=== PATIENT | female | born 1990 | race Caucasian/White ===

== ENCOUNTER 2017-02-15 18:08 | Emergency (ER) | payer OTHER ==
[~2017-02-15] VITALS: Ht 157.5 cm; Wt 63.5 kg
--- NOTE | 2017-02-15 19:04 | ED HEADACHE COMPLAINT ---
History of Present Illness General Chief Complaint: General Adult Stated Complaint: WALTERS, DIZZY, FEELS LIKE HEART IS RACING Source: patient, old records Exam Limitations: no limitations Vital Signs & Intake/Output Vital Signs & Intake/Output Vital Signs Date Time Temp Pulse Resp B/P B/P Pulse O2 O2 Flow FiO2 Mean Ox Delivery Rate 02/16 2056 97.9 78 18 108/69 98 Room Air 02/15 2055 100 Room Air 02/15 1827 98.9 106 18 125/85 99 Room Air ED Intake and Output 02/16 0000 02/15 1200 Intake Total Output Total Balance Patient 140 lb Weight Weight Reported by Patient Measurement Method Allergies Coded Allergies: NO KNOWN ALLERGIES (10/29/13) Reconcile Medications Butalb/Acetaminophen/Caffeine (Fioricet 50-300-40 MG Capsule) 50 MG-300 MG-40 MG CAPSULE 1 TAB PO Q6HR PRN HEADACHE Triage Note: PT TO TRIAGE WITH C/O MIGRAINE 6/ AND PALPITATIONS xFEW DAYS. PT SMOKES MARIJUANA. EKG DONE IN TRIAGE -ST 100'S. PT DENIES CHEST PAIN,SOB. Triage Nurses Notes Reviewed? yes Onset: Gradual Duration: week(s): (2.5), intermittent, waxing and waning Timing: recent history Quality/Severity: mild, moderate Severity Numbers: 5 Head Injury Location: global No Modifying Factors: none Associated Symptoms: PALPITATIONS : No Patient currently breastfeeds: No HPI: 26-year-old female with no medical history presents to ER for evaluation cleared 2-1/2 week history of a generalized intermittent waxing and waning headache after she states she sustained a concussion. Pain is 6 out of 10 and she has not taken anything for her symptoms. She is also reports intermittent palpitations since the injury occurred. There was no loss of consciousness she denies fever chills she has a history of palpitations in the past. No chest pain shortness of breath. Pain nausea vomiting. She's not sought care for the symptoms until today. She smokes marijuana daily and had a glass of wine with her mom prior to coming into the ER today (JACQUELINE BAIRD,YANI) Past History Travel History Traveled to [place] past 21 day No Medical History Any Pertinent Medical History? see below for history Cardiovascular: PALPITATIONS Tetanus Vaccine: 10/29/13 Surgical History Surgical History: non-contributory Psychosocial History What is your primary language Urdu Tobacco Use: Current Daily Use Daily Tobacco Use Amount/Type: => 5 Cigarettes daily ETOH Use: occasional use Illicit Drug Use: marijuana Family History Hx Contributory? No (YANI GIBBONS) Review of Systems Review of Systems Constitutional: Reports: see HPI. All Other Systems: Reviewed and Negative Comments Review of systems: See HPI, All other systems negative. Constitutional, no chills no fever, no malaise HEENT: No visual changes no sore throat no congestion, no ear pain Cardiovascular: No chest pain , no palpitation , no orthopnea Skin: , no change in skin Respiratory: No dyspnea no cough no sputum GI: No nausea no vomiting, no diarrhea, : No dysuria No hematuria, Muscle skeletal: No joint pain, no joint swelling, no back pain, no neck pain, Neurologic: No numbness no confusion, headache Psych: No stress no depression,. Heme/endocrine: No bruising no bleeding Immunology: No lymphadenopathy (YANI GIBBONS) Physical Exam Physical Exam General Appearance: well developed/nourished, alert, awake Cranial Nerves: normal hearing, normal speech, PERRL Comments: Well-developed well-nourished person in no acute distress HEENT: Normal EENT exam; PERRL, EOMI, no nystagmus. HEAD is atraumatic. moist mucous membranes. Neck: Supple, no lymphadenopathy, normal range of motion without pain or tenderness Back: Nontender, no CVA tenderness. Full range of motion Cardiovascular: Regular rate and rhythms no murmurs rubs Respiratory: Chest nontender.There were no bony deformities, no asymmetry. No respiratory distress. Patient speaking in full complete sentences. Breath sounds clear to auscultation bilaterally: NO W/R/R Abdomen: Soft, nontender nondistended, no appreciable organomegaly. Normal bowel sounds. No rebound/guarding, Extremity: No edema, full range of motion of extremities Neuro: Alert oriented x3, motor sensory normal. There were no obvious focal neurologic abnormalities. Skin: No appreciable rash on exposed skin, skin is warm and dry. Psych: Mood and affect is normal, memory and judgment is normal. Core Measures Severe Sepsis Present: No Septic Shock Present: No (YANI GIBBONS) Progress Differential Diagnosis: cluster WALTERS, encephalitis, IC mass/tumor, intracranial Hem., meningitis, migraine WALTERS, musculoskeletal pain, sinusitis, subarach. Hem., tension WALTERS, VIRAL SYNDROME, ELECTROLYTE ABNORAMLITY, THYROID ABNORMALITY Plan of Care: Orders Procedure Date/time Status THYROID STIMULATING HORMONE 02/15 1905 Complete COMPREHENSIVE METABOLIC PANEL 02/15 1905 Complete CBC WITHOUT DIFFERENTIAL 02/15 1905 Complete EKG 02/15 1810 Active Laboratory Tests 02/15/172002: Anion Gap 10, Estimated GFR > 60, BUN/Creatinine Ratio 11.4, Glucose 82, Calcium 9.6, Total Bilirubin 0.3, AST 19, ALT 34, Alkaline Phosphatase 57, Total Protein 6.8, Albumin 4.1, Globulin 2.7, Albumin/Globulin Ratio 1.5, TSH 0.685, CBC w Diff NO MAN DIFF REQ, RBC 4.19 L, MCV 85.4, MCH 28.1, RDW 15.5 H, MPV 7.4, Gran % 59.9, Lymphocytes % 30.7, Monocytes % 8.0, Eosinophils % 0.9, Basophils % 0.5, Absolute Granulocytes 5.8, Absolute Lymphocytes 3.0, Absolute Monocytes 0.8 H, Absolute Eosinophils 0.1, Absolute Basophils 0, PUBS MCHC 32.9 L LABS ORDERED, PT CURRENLTY STACH AT 100, DENIES CP, DYSPNEA. MEDICATED WITH MOTRIN 800MG I discussed with the patient at length all of their results. I had an extensive conversation regarding need for close follow up with their primary care physician this week as well as return precautions. I answered all of their questions, they feel comfortable with the plan and follow-up care. I discussed with the patient/family the medications that they will receive. I gave them signs and symptoms that could indicate an adverse reaction. I have advised them to limit their activities until they can see how they respond to the medication. (YANI GIBBONS) Departure Departure Time of Disposition: 2049 Disposition: HOME OR SELF CARE Condition: Stable Clinical Impression Primary Impression: Post concussive syndrome Referrals: ASMITA STEVEN DO PATIENT HAS NO PRIMARY CARE DR (PCP/Family) Additional Instructions: follow up with pmd dr steven. rosario as directed. brain rest. limit tv, cellphone computer usage. return to the er with any concerns this was sent to [facility] Departure Forms: Customer Survey General Discharge Information Prescriptions: Current Visit Scripts Butalb/Acetaminophen/Caffeine (Fioricet 50-300-40 MG Capsule) 1 TAB PO Q6HR PRN HEADACHE #12 TAB (YANI GIBBONS) PA/[employer]UR[employer] GENERATOR OILER Co-Sign Statement Statement: ED Attending supervision documentation- [] I saw and evaluated the patient. I have also reviewed all the pertinent lab results and diagnostic results. I agree with the findings and the plan of care as documented in the PA's/TURBO GENERATOR OILER's documentation. [x] I have reviewed the ED Record and agree with the PA's/TURBO GENERATOR OILER's documentation. [] Additions or exceptions (if any) to the PAs/TURBO GENERATOR OILER's note and plan are summarized below: [] (RASHID ART,LIANNE Martinez)
[2017-02-15 20:12] LABS: ABSOLUTE BASOPHIL COUNT 0 /CUMM (0.0-0.2); ABSOLUTE EOSINOPHIL COUNT 0.1 /CUMM (0.0-0.7); ABSOLUTE GRANULOCYTE CT 5.8 /CUMM (1.4-6.5); ABSOLUTE MONOCYTE COUNT 0.8 /CUMM (0.10-0.60); BASOPHIL % 0.5 % (0.0-2.0); EOSINOPHIL % 0.9 % (0-5); GRANULOCYTE % 59.9 % (42.2-75.2); HEMATOCRIT 35.8 % (37-47); MEAN CORPUSCULAR HGB 28.1 PG (27.0-31.0); MEAN CORPUSCULAR HGB CONC 32.9 G/DL (33.0-37.0); MEAN CORPUSCULAR VOLUME 85.4 FL (81.0-99.0); MEAN PLATELET VOLUME 7.4 FL (7.4-10.4); PLATELET COUNT 301 /CUMM (130-400); RBC DISTRIBUTION WIDTH 15.5 % (11.5-14.5); RED BLOOD CELL CT 4.19 /CUMM (4.20-5.40); WHITE BLOOD CELL COUNT 9.6 /CUMM (4.8-10.8)
[2017-02-15] MEDS ORDERED: FIORICET 50-301 EACH PO (20:50)
[2017-02-15 20:56] VITALS: BP 108/69
== END 2017-02-15 20:57 ==
LOC: ERH 18:08
PROVIDERS: Physician Assistant Medical
DX: F07.81 Postconcussional syndrome (principal); G44.309 Post-traumatic headache, unspecified, not intractable; R00.2 Palpitations
CPT/HCPCS: 93005; 93010